=== PATIENT | male | born 1985 | race Hispanic/Latino ===

== ENCOUNTER 2018-12-13 18:39 | Emergency (ER) | payer SELFPAY ==
--- NOTE | 2018-12-13 20:07 | RAD REPORT ---
EXAM DESCRIPTION: RAD - Chest Single View - 12/13/2018 7:59 pm CLINICAL HISTORY: Chest pain COMPARISON: None. TECHNIQUE: AP portable chest image was obtained 1956 hours . FINDINGS: Lungs are clear. Heart and vasculature are normal. No measurable pleural effusion and no p neumothorax. No acute bony abnormality seen. No acute aortic findings suspected. IMPRESSION: No acute cardiopulmonary process.
[2018-12-13 20:19] LABS: Absolute Lymphocytes (CBC) 2.8 K/uL (0.7-4.9); Basophils % 0.6 % (0-1.3); Eosinophils % 2.4 % (0-4.4); Hematocrit 48.5 % (39.6-49.0); Lymphocytes % 33.8 % (15.3-44.8); Monocytes % 9.4 % (3.3-12.3); RBC Red Blood Cell Count 5.33 M/uL (4.33-5.43)
[2018-12-13 20:37] LABS: BUN Blood Urea Nitrogen 8 mg/dL (7-18); Bicarbonate 27 mmol/L (21-32); Glucose Level 95 mg/dL (74-106); Potassium 3.9 mmol/L (3.5-5.1); Sodium Level 141 mmol/L (136-145); Troponin (Emerg Dept Use Only) < 0.02 ng/mL (0.0-0.045)
--- NOTE | 2018-12-13 20:41 | ER ---
Nurse's Notes [facility] Name: Toby Darling Age: 33 yrs Sex: Male : 1985 Arrival Date: 12/13/2018 Time: 18:42 Bed 30 Private MD: Diagnosis: Chest pain, unspecified Presentation: 12/13 18:47 Presenting complaint: Patient states: SUBSTERNAL "BURNING" CHEST PAIN SINCE NOON. bp Transition of care: patient was not received from another setting of care. Onset of symptoms was December 13, 2018 at 12:00. Risk Assessment: Do you want to hurt yourself or someone else? Patient reports no desire to harm self or others. Initial Sepsis Screen: Does the patient meet any 2 criteria? No. Patient's initial sepsis screen is negative. Does the patient have a suspected source of infection? No. Patient's initial sepsis screen is negative. Care prior to arrival: None. 18:47 Method Of Arrival: Ambulatory bp 18:47 Acuity: DORINA 3 bp Triage Assessment: 18:49 General: Appears in no apparent distress. comfortable, Behavior is cooperative, bp appropriate for age, anxious. Pain: Complains of pain in mid-sternal area. EENT: No deficits noted. Neuro: No deficits noted. Cardiovascular: Reports chest pain, since NOON. Respiratory: No deficits noted. GI: No signs and/or symptoms were reported involving the gastrointestinal system. : No signs and/or symptoms were reported regarding the genitourinary system. Derm: No deficits noted. Musculoskeletal: No deficits noted. Historical: - Allergies: 18:48 No Known Allergies; bp - Home Meds: 18:48 None [Active]; bp - PMHx: 18:48 None; bp - PSHx: 18:48 None; bp - Immunization history:: Adult Immunizations up to date. - Social history:: Smoking status: Patient/guardian denies using tobacco. - Ebola Screening: : No symptoms or risks identified at this time. - Family history:: not pertinent. - Hospitalizations: : No recent hospitalization is reported. Screenin:18 Abuse screen: Denies threats or abuse. Nutritional screening: No deficits noted. ae4 Tuberculosis screening: No symptoms or risk factors identified. Fall Risk None identified. Assessment: 21:19 Pain: Pain does not radiate. Pain began gradually. ae4 Vital Signs: 18:48 BP 131 / 76; Pulse 94; Resp 20; Temp 98.1; Pulse Ox 99% ; Weight 75.3 kg; bp 20:15 BP 120 / 82; Pulse 79; Resp 18; Pulse Ox 96% on R/A; ae4 ED Course: 18:42 Patient arrived in ED. mr 18:48 Triage completed. bp 18:48 Arm band placed on right wrist. bp 19:10 Placed in gown. Bed in low position. Call light in reach. Side rails up X 1. Cardiac ae4 monitor on. Pulse ox on. NIBP on. Warm blanket given. 19:15 No provider procedures requiring assistance completed. IV discontinued, intact, ae4 bleeding controlled, No redness/swelling at site. Pressure dressing applied. Patient maintains SpO2 saturation greater than 95% on room air. 19:18 Sandro Cedeño, RN is Primary Nurse. ae4 19:32 Clement Bentley MD is Attending Physician. rn 19:32 [facility] Mars [facility] jr8 19:56 Initial lab(s) drawn, by mi, sent to lab. Inserted saline lock: 20 gauge in right lt1 antecubital area, using aseptic technique. 19:59 XRAY Chest (1 view) In Process Unspecified. EDMS Administered Medications: 21:05 Drug: TORadol - Ketorolac 15 mg Route: IVP; Site: right antecubital; ae4 21:18 Follow up: Response: No adverse reaction; Pain is decreased ae4 Outcome: 20:40 Discharge ordered by . rn 21:20 Discharged to home ambulatory, with significant other. ae4 21:20 Condition: stable 21:20 Discharge instructions given to patient, Instructed on discharge instructions, follow up and referral plans. Demonstrated understanding of instructions. 21:20 Patient left the ED. ae4 Signatures: Dispatcher [employer] EDMS Jacquelyn Hayward mr Clement Bentley MD MD rn Roszak, Josh, PA PA jr8 Cesario Ocampo RN RN bp Tran Edda lt1 Sandro Cedeño, RN RN ae4
--- NOTE | 2018-12-13 20:42 | EDPHYS ---
Physician Documentation [facility] Name: Toby Darling Age: 33 yrs Sex: Male : 1985 Arrival Date: 12/13/2018 Time: 18:42 Bed 30 Private MD: ED Physician Clement Bentley HPI: 12/13 19:49 This 33 yrs old Male presents to ER via Ambulatory with complaints of Chest rn Pain. 19:49 The patient or guardian reports chest pain that is located primarily in the anterior rn chest wall, left. The pain does not radiate. Associated signs and symptoms: The patient has no apparent associated signs or symptoms, Pertinent negatives: abdominal pain, diaphoresis, dizziness, headache, shortness of breath, syncope, vomiting. The chest pain is described as aching, burning. Duration: The patient or guardian reports multiple episodes, that are intermittent. Modifying factors: The symptoms are alleviated by nothing. the symptoms are aggravated by nothing. Severity of pain: At its worst the pain was mild in the emergency department the pain has improved. The patient has experienced similar episodes in the past. Reports intermittent left sided chest pain that began around 12-2 today, no radiation, no fever/cough/sob. No famhx of cardiac disease. Has been having smaller episodes of chest pain infrequently over last 6 months. NO abd pain/nausea/vomiting.. Historical: - Allergies: 18:48 No Known Allergies; bp - Home Meds: 18:48 None [Active]; bp - PMHx: 18:48 None; bp - PSHx: 18:48 None; bp - Immunization history:: Adult Immunizations up to date. - Social history:: Smoking status: Patient/guardian denies using tobacco. - Ebola Screening: : No symptoms or risks identified at this time. - Family history:: not pertinent. - Hospitalizations: : No recent hospitalization is reported. ROS: 19:49 Constitutional: Negative for fever, chills, and weight loss, Eyes: Negative for injury, rn pain, redness, and discharge, Neck: Negative for injury, pain, and swelling, Cardiovascular: Negative for palpitations, and edema, Respiratory: Negative for shortness of breath, cough, wheezing, and pleuritic chest pain, Abdomen/GI: Negative for abdominal pain, nausea, vomiting, diarrhea, and constipation, MS/Extremity: Negative for injury and deformity, Skin: Negative for injury, rash, and discoloration, Neuro: Negative for headache, weakness, numbness, tingling, and seizure. Exam: 19:49 Constitutional: This is a well developed, well nourished patient who is awake, alert, rn and in no acute distress. Laying in bed legs crossed, smiling. Head/Face: Normocephalic, atraumatic. Eyes: Pupils equal round and reactive to light, extra-ocular motions intact. Lids and lashes normal. Conjunctiva and sclera are non-icteric and not injected. Cornea within normal limits. Periorbital areas with no swelling, redness, or edema. Cardiovascular: Regular rate and rhythm with a normal S1 and S2. No gallops, murmurs, or rubs. Normal PMI, no JVD. No pulse deficits. Respiratory: Lungs have equal breath sounds bilaterally, clear to auscultation and percussion. No rales, rhonchi or wheezes noted. No increased work of breathing, no retractions or nasal flaring. Abdomen/GI: Soft, non-tender, with normal bowel sounds. No distension or tympany. No guarding or rebound. No evidence of tenderness throughout. Skin: Warm, dry with normal turgor. Normal color with no rashes, no lesions, and no evidence of cellulitis. MS/ Extremity: Pulses equal, no cyanosis. Neurovascular intact. Full, normal range of motion. Equal circumference. Neuro: Awake and alert, GCS 15, oriented to person, place, time, and situation. Cranial nerves II-XII grossly intact. Motor strength 5/5 in all extremities. Sensory grossly intact. Cerebellar exam normal. Vital Signs: 18:48 BP 131 / 76; Pulse 94; Resp 20; Temp 98.1; Pulse Ox 99% ; Weight 75.3 kg; bp 20:15 BP 120 / 82; Pulse 79; Resp 18; Pulse Ox 96% on R/A; ae4 MDM: 19:32 Patient medically screened. rn 20:39 Differential diagnosis: acute pericarditis, chest wall pain, costochondritis, rn esophagitis, gastritis, gastroesophageal reflux disease (GERD), pleurisy, pneumothorax. Data reviewed: vital signs, nurses notes, lab test result(s), EKG, radiologic studies, plain films, and as a result, I will discharge patient. Counseling: I had a detailed discussion with the patient and/or guardian regarding: the historical points, exam findings, and any diagnostic results supporting the discharge/admit diagnosis, lab results, radiology results, the need for outpatient follow up, to return to the emergency department if symptoms worsen or persist or if there are any questions or concerns that arise at home. Special discussion: Based on the patient's history, exam, and Dx evaluation, there is no indication for emergent intervention or inpatient Tx. It is understood by the patient/guardian that if the Sx's persist or worsen they need to return immediately for re-evaluation. I discussed with the patient/guardian in detail that at this point there is no indication for admission to the hospital. It is understood, however, that if the symptoms persist or worsen the patient needs to return immediately for re-evaluation. 12/13 19:36 Order name: CBC with Diff; Complete Time: 20:33 rn 12/13 19:36 Order name: Basic Metabolic Panel; Complete Time: 20:39 rn 12/13 18:50 Order name: EKG; Complete Time: 18:51 bp 12/13 19:36 Order name: XRAY Chest (1 view); Complete Time: 20:27 rn 12/13 19:36 Order name: Troponin (emerg Dept Use Only); Complete Time: 20:39 rn 12/13 18:50 Order name: EKG - Nurse/Tech; Complete Time: 18:50 bp 12/13 19:36 Order name: IV Start; Complete Time: 19:56 rn Administered Medications: 21:05 Drug: TORadol - Ketorolac 15 mg Route: IVP; Site: right antecubital; ae4 21:18 Follow up: Response: No adverse reaction; Pain is decreased ae4 Disposition: 12/13/18 20:40 Discharged to Home. Impression: Chest pain, unspecified. - Condition is Stable. - Discharge Instructions: Nonspecific Chest Pain. - Medication Reconciliation Form, Thank You Letter, Antibiotic Education, Prescription Opioid Use form. - Follow up: Private Physician; When: As needed; Reason: Recheck today's complaints, Re-evaluation by your physician. - Problem is new. - Symptoms have improved. Signatures: Dispatcher [employer] EDClement Garces MD MD rn Peltier, Brian, RN RN bp Elliott, Sandro, RN RN ae4 Corrections: (The following items were deleted from the chart) 21:20 20:40 12/13/2018 20:40 Discharged to Home. Impression: Chest pain, unspecified. ae4 Condition is Stable. Forms are Medication Reconciliation Form, Thank You Letter, Antibiotic Education, Prescription Opioid Use. Follow up: Private Physician; When: As needed; Reason: Recheck today's complaints, Re-evaluation by your physician. Problem is new. Symptoms have improved. rn
[2018-12-13] MEDS ORDERED: KETOROLAC 30 MG/ML INJ ONE (21:16)
--- NOTE | 2018-12-14 09:56 | EKG ---
Test Date: 2018-12-13 Test Time: 18:50:30 Supervisor Sandblaster: ALFREDO MEASUREMENT RESULTS: Intervals: Rate: 93 WA: 124 QRSD: 82 QT: 332 QTc: 412 Roe: P: 60 WA: 124 QRS: 46 T: 24 INTERPRETIVE STATEMENTS: Normal sinus rhythm Nonspecific ST abnormality Abnormal ECG No previous ECG available for comparison Electronically Signed On 12-14-18 09:55:48 CDT by Isauro Gastelum
== END 2018-12-13 21:20 | disposition home or self-care (01) ==
LOC: ER 18:39
DX: R07.9 Chest pain, unspecified (principal)
CPT/HCPCS: 36415; 71045; 80048; 84484; 85025; 93005; 96374; 99285